=== PATIENT | female | born 1985 | race American Indian/Alaskan Native ===

== ENCOUNTER 2017-11-22 08:23 | Emergency (ER) | payer MEDICAID ==
[~2017-11-22] VITALS: Ht 165.1 cm; Wt 63.9 kg
[~2017-11-22 08:23] MED LIST: CYCL-1 PO; GENT5DRO4 EACHEYE; GUAI120015 PO; NO HOME MEDS
[2017-11-22 08:40] VITALS: BP 102/71
[2017-11-22] MEDS ORDERED: PENI500T2 PO (09:00)
== END 2017-11-22 09:15 | disposition home or self-care (01) ==
LOC: ER 08:23
DX: K08.89 Other specified disorders of teeth and supporting structures (principal); J45.909 Unspecified asthma, uncomplicated; Z90.49 Acquired absence of other specified parts of digestive tract; Z98.890 Other specified postprocedural states; Z79.899 Other long term (current) drug therapy
CPT/HCPCS: 90471; 99283; 99284

== ENCOUNTER 2019-09-16 11:22 | Emergency (ER) | payer MEDICAID ==
[~2019-09-16] VITALS: Ht 165.1 cm; Wt 67.0 kg
[2019-09-16 11:43] VITALS: BP 125/73
== END 2019-09-16 11:45 | disposition home or self-care (01) ==
LOC: ER 11:22
DX: F10.10 Alcohol abuse, uncomplicated (principal); F15.10 Other stimulant abuse, uncomplicated; J45.909 Unspecified asthma, uncomplicated; Z90.49 Acquired absence of other specified parts of digestive tract; Z98.890 Other specified postprocedural states; Y90.9 Presence of alcohol in blood, level not specified
CPT/HCPCS: 99281

== ENCOUNTER 2020-10-23 07:48 | Emergency (ER) | payer MEDICAID ==
[~2020-10-23] VITALS: Ht 162.6 cm; Wt 79.6 kg
[2020-10-23 07:56] VITALS: BP 112/80
[2020-10-23] MEDS ORDERED: METH4TAB81 PO (08:27)
[2020-10-23] MEDS ORDERED: AMOX500C2 PO (08:27)
== END 2020-10-23 09:23 | disposition home or self-care (01) ==
LOC: ER 07:49
DX: K04.7 Periapical abscess without sinus (principal); K00.7 Teething syndrome; J45.909 Unspecified asthma, uncomplicated; F15.90 Other stimulant use, unspecified, uncomplicated; Z90.49 Acquired absence of other specified parts of digestive tract; Z72.89 Other problems related to lifestyle; Z79.899 Other long term (current) drug therapy
CPT/HCPCS: 99283